=== PATIENT | male | born 1970 ===

== ENCOUNTER 2019-09-25 09:52 | Emergency (ER) | payer OTHER ==
[~2019-09-25] VITALS: Ht 175.3 cm; Wt 104.3 kg
[~2019-09-25 09:52] MED LIST: DIOVAN160 M1
[2019-09-25] MEDS ORDERED: AVAPRO300 MG PO (10:00)
== END 2019-09-25 11:20 | disposition home or self-care (01) ==
LOC: ER 09:52
DX: K58.8 Other irritable bowel syndrome (principal); F06.4 Anxiety disorder due to known physiological condition

== ENCOUNTER 2019-11-05 09:02 | Outpatient (CLI) | payer OTHER ==
[~2019-11-05 09:02] MED LIST changes: +AVAPRO300 MG PO
== END 2019-11-05 09:04 | disposition home or self-care (01) ==
LOC: SONOGRAMA 09:02 → MAMO-SONO 09:15
DX: R10.13 Epigastric pain (principal); R74.0 Nonspecific elevation of levels of transaminase and lactic acid dehydrogenase [LDH]